=== PATIENT | male | born 1990 | race Two or more races ===

== ENCOUNTER 2018-11-06 17:45 | Emergency (ER) | payer MEDICAID ==
[~2018-11-06] VITALS: Ht 175.3 cm; Wt 89.4 kg
[2018-11-06 18:33] VITALS: BP 131/94
[2018-11-06] MEDS ORDERED: cefTRIAXone SOD 1,000 MG VL IM ONE (19:15)
[2018-11-06] MEDS ORDERED: LIDOCAINE HCL 2 %PF INJ 10ML AMP IJ ONE (19:30)
== END 2018-11-06 20:20 | disposition home or self-care (01) ==
LOC: ER 17:47
DX: L02.511 Cutaneous abscess of right hand (principal); F17.210 Nicotine dependence, cigarettes, uncomplicated; F12.10 Cannabis abuse, uncomplicated
CPT/HCPCS: 26010; 73130; 96372; 99283; J0696

== ENCOUNTER 2019-05-24 17:26 | Emergency (ER) | payer SELFPAY ==
[~2019-05-24] VITALS: Ht 175.3 cm; Wt 86.2 kg
[2019-05-24 18:23] VITALS: BP 153/81
== END 2019-05-24 19:44 | disposition home or self-care (01) ==
LOC: ER 17:34
DX: M79.645 Pain in left finger(s) (principal); F12.10 Cannabis abuse, uncomplicated; F17.210 Nicotine dependence, cigarettes, uncomplicated; I10 Essential (primary) hypertension
CPT/HCPCS: 73130